=== PATIENT | female | born 2000 | race African-American/Black ===

== ENCOUNTER 2020-07-24 13:02 | Emergency (ER) | payer SELFPAY ==
[2020-07-24] MEDS ORDERED: Mag-Al 1200 mg/1200 mg/30 ML UDCUP ONE (13:27)
[2020-07-24] MEDS ORDERED: Lidocaine Viscous Sol 2% 15 ml UD Cup ONE (13:27)
[2020-07-24] MEDS ORDERED: Ondansetron ODT 4 MG TAB ONE (13:28)
== END 2020-07-24 13:48 | disposition home or self-care (01) ==
LOC: ERS 13:02
DX: O21.9 Vomiting of pregnancy, unspecified (principal); O99.611 Diseases of the digestive system complicating pregnancy, first trimester; K21.9 Gastro-esophageal reflux disease without esophagitis; Z3A.11 11 weeks gestation of pregnancy
CPT/HCPCS: 99283; Q0162

== ENCOUNTER 2020-07-27 10:40 | Emergency (ER) | payer SELFPAY ==
[2020-07-27 11:21] LABS: Bacteria/HPF None Seen HPF (None Seen); Bilirubin Negative (Negative); Blood, Urine 1+ (Negative); Clarity Clear (Clear); Glucose, Urine (Dipstick) >=1000 mg/dL (Negative); Ketone, Urine Greater than 150 mg/dL (Negative); Leukocyte 25 Leu/uL (Negative); Mucous/LPF 2+ LPF (<2+); Nitrite Negative (Negative); Protein, Urine (Dipstick) 100 mg/dL (Neg-Trace); Specific Gravity, Urine 1.035 (1.002-1.036); Squamous Epithelial 0-3 HPF (0-3); Urobilinogen Normal mg/dL (Less than 2)
[2020-07-27] MEDS ORDERED: Metoclopramide HCl 10 MG/2 ML VIAL ONE (11:48)
[2020-07-27] MEDS ORDERED: Pantoprazole 40 MG VIAL ONE (11:48)
[2020-07-27] MEDS ORDERED: Metoclopramide 10 MG/10 ML UDCUP ONE (11:48)
[2020-07-27 11:51] LABS: Hemoglobin 12.3 g/dL (12.0-16.0); Mean Corpuscular HGB CONC 34.6 g/dL (32.0-36.0); Mean Corpuscular Hemoglobin 31.7 pg (25.0-35.0); Mean Corpuscular Volume 91.6 fL (78.0-98.0); Mean Platelet Volume 5.6 fL (7.4-10.4); Platelet Count 432 thou/uL (130-400); RBC Distribution Width 12.4 % (11.5-14.5); Red Blood Cell (RBC) Count 3.89 mill/uL (4.00-5.20); White Blood Cell (WBC) Count 11.7 thou/uL (4.8-10.8)
[2020-07-27 12:06] LABS: Lymphocytes 7 % (28-48); MDiff Complete? YES; Monocytes 5 % (0-4); Neutrophil 85 % (31-61); Platelet Morphology Comment Appears Increased; Reactive Lymphocytes 3 % (0-10); Vacuoles SLIGHT
[2020-07-27 12:10] LABS: ALT (SGPT) 8 U/L (8-55); AST (SGOT) 16 U/L (5-30); Albumin 4.4 g/dL (3.5-5.0); Alkaline Phosphatase 31 U/L (40-100); Anion Gap 16 mmol/L (10-20); BUN (Urea Nitrogen) 9 mg/dL (8.4-21.0); Bilirubin, Total 0.5 mg/dL (0.2-1.2); Calc. Creatinine Clearance 0 mL/min (70-130); Calcium 9.7 mg/dL (7.8-10.44); Carbon Dioxide 22 mmol/L (22-29); Chloride 100 mmol/L (98-107); Globulin 3.5 g/dL (2.4-3.5); Glucose 138 mg/dL (70-105); Lipase 5 U/L (8-78); Potassium 3.2 mmol/L (3.5-5.1); Protein, Total 7.9 g/dL (6.0-8.3); Sodium 135 mmol/L (136-145)
--- NOTE | 2020-07-27 12:40 | ULT ---
Exam: Transabdominal pelvic ultrasound HISTORY: Vomiting. Pain. patient. COMPARISON: none TECHNIQUE: Transabdominal imaging of the pelvis is performed. Ovaries are interrogated with grayscale , color flow, Doppler imaging and spectral waveform analysis FINDINGS: Uterus is identified, without myometrial mass. Uterus measures 7.3 x 9.4 x 8.1 cm. There is a gestational sac, and pole. Venturia-rump length is 4.78 cm corresponding to gestational age of 11 weeks 4 days. Subchorionic hemorrhage: None. Placenta appears be posterior fundal in location. heart tones: 168 bpm Left and right ovary have a normal echotexture. Left ovary measures 3.0 x 1.4 x 1.8 cm. Right ovary m easures 2.9 x 3.3 x 2.3 cm. Free fluid: None Ovarian Doppler: Vascular flow to the right and left ovary IMPRESSION: 1. Single intrauterine gestation with heart tones. Gestational age by crown-rump length is 11 w eeks 4 days.
== END 2020-07-27 15:10 | disposition home or self-care (01) ==
LOC: ERS 10:40
DX: O21.0 Mild hyperemesis gravidarum (principal); Z3A.12 12 weeks gestation of pregnancy
CPT/HCPCS: 36415; 36416; 76856; 80053; 81003; 81015; 83690; 84702; 85025; 87086; 93976; 96374; 96375; C9113; J2765

== ENCOUNTER 2020-07-31 13:43 | Emergency (ER) | payer SELFPAY ==
[2020-07-31 14:31] LABS: #Basophils 0.1 thou/uL (0.0-0.2); #Lymphocytes 1.9 thou/uL (1.20-3.40); #Monocytes 0.7 thou/uL (0.11-0.59); #Neutrophils 8.4 thou/uL (1.40-6.50); %Basophils 0.5 % (0.0-1.0); %Eosinophils 0.1 % (0.0-10.0); %Lymphocytes 17.2 % (28.0-48.0); %Monocytes 6.2 % (0.0-4.0); %Neutrophils 76.1 % (31.0-61.0); Mean Corpuscular HGB CONC 35.3 g/dL (32.0-36.0); Mean Corpuscular Hemoglobin 32.1 pg (25.0-35.0); Mean Corpuscular Volume 90.8 fL (78.0-98.0); Mean Platelet Volume 5.4 fL (7.4-10.4); Platelet Count 465 thou/uL (130-400); RBC Distribution Width 12.1 % (11.5-14.5); Red Blood Cell (RBC) Count 4.37 mill/uL (4.00-5.20); White Blood Cell (WBC) Count 11.1 thou/uL (4.8-10.8)
[2020-07-31 14:36] LABS: BHCG - Serum POSITIVE (NEGATIVE); Pregs Control Background? CLEAR/WHITE (CLR/WHITE); Pregs Control Bar Appear? YES (CONTROL BAR)
[2020-07-31 14:52] LABS: ALT (SGPT) 8 U/L (8-55); AST (SGOT) 17 U/L (5-30); Albumin 4.1 g/dL (3.5-5.0); Alkaline Phosphatase 33 U/L (40-100); Anion Gap 19 mmol/L (10-20); BUN (Urea Nitrogen) 7 mg/dL (8.4-21.0); Bilirubin, Total 0.7 mg/dL (0.2-1.2); Calc. Creatinine Clearance 0 mL/min (70-130); Calcium 8.9 mg/dL (7.8-10.44); Carbon Dioxide 20 mmol/L (22-29); Chloride 99 mmol/L (98-107); Globulin 3.4 g/dL (2.4-3.5); Glucose 72 mg/dL (70-105); Potassium 3.1 mmol/L (3.5-5.1); Protein, Total 7.5 g/dL (6.0-8.3); Sodium 135 mmol/L (136-145)
[2020-07-31] MEDS ORDERED: Promethazine HCl 25 MG/ML VIAL ONE (14:52)
[2020-07-31 16:35] LABS: Bilirubin Negative (Negative); Blood, Urine 1+ (Negative); Clarity Clear (Clear); Glucose, Urine (Dipstick) Normal (Negative); Ketone, Urine Greater than 150 mg/dL (Negative); Leukocyte 25 Leu/uL (Negative); Nitrite Negative (Negative); Protein, Urine (Dipstick) 50 mg/dL (Neg-Trace); RBC/HPF 0-3 HPF (0-3); Specific Gravity, Urine 1.029 (1.002-1.036); Squamous Epithelial 0-3 HPF (0-3); Urobilinogen Normal mg/dL (Less than 2)
[2020-07-31 16:37] LABS: Bacteria/HPF 1+ HPF (None Seen)
[2020-07-31] MEDS ORDERED: Acetaminophen 500 MG TAB ONE (16:50)
[2020-07-31] MEDS ORDERED: Ondansetron ODT 4 MG TAB ONE ×2 (18:18→18:23)
[2020-07-31] MEDS ORDERED: Ondansetron PF 4 MG/2 ML Vial ONE (18:21)
[2020-07-31] MEDS ORDERED: ALUMINUM HYDROXIDE PO SCH (18:30)
[2020-07-31] MEDS ORDERED: Mag-Al 1200 mg/1200 mg/30 ML UDCUP ONE (18:42)
== END 2020-07-31 19:20 | disposition home or self-care (01) ==
LOC: ERS 13:43
DX: O21.0 Mild hyperemesis gravidarum (principal); O23.41 Unspecified infection of urinary tract in pregnancy, first trimester; Z3A.11 11 weeks gestation of pregnancy
CPT/HCPCS: 36415; 80053; 81003; 81015; 84703; 85025; 87086; 96365; 96366; J2405; J2550; Q0162

== ENCOUNTER 2023-05-16 11:21 | Emergency (ER) | payer MEDICAID ==
[2023-05-16] MEDS ORDERED: Ibuprofen 200 MG TAB ONE (12:38)
== END 2023-05-16 14:07 | disposition home or self-care (01) ==
LOC: ERS 11:21
DX: S62.336D Displaced fracture of neck of fifth metacarpal bone, right hand, subsequent encounter for fracture with routine healing (principal); W18.30XD Fall on same level, unspecified, subsequent encounter